=== PATIENT | male | born 1980 | race Caucasian/White ===

== ENCOUNTER 2023-08-22 18:24 | Emergency (ER) | payer OTHER ==
[~2023-08-22] VITALS: Ht 167.6 cm; Wt 111.1 kg
[2023-08-22 18:48] VITALS: BP 138/80; PULSE 73; RESP 20; TEMP 97.9; O2SAT 96
[2023-08-22] MEDS ORDERED: KETOROLAC 30 MG/ML VIAL IM ONE (19:00)
[2023-08-22] MEDS ORDERED: NAPR-54 PO (19:39)
[2023-08-22] MEDS ORDERED: LID5T TP (19:39)
== END 2023-08-22 20:01 | disposition home or self-care (01) ==
LOC: MED 18:24
DX: S46.212A Strain of muscle, fascia and tendon of other parts of biceps, left arm, initial encounter (principal); X58.XXXA Exposure to other specified factors, initial encounter; Y93.89 Activity, other specified; Y92.89 Other specified places as the place of occurrence of the external cause; Y99.8 Other external cause status
CPT/HCPCS: 73080; 96372; 99283; J1885